=== PATIENT | female | born 1965 | race African-American/Black ===

== ENCOUNTER 2017-06-25 10:11 | Emergency (ER) | payer MEDICAID ==
[~2017-06-25] VITALS: Ht 167.6 cm; Wt 90.7 kg
[2017-06-25] MEDS ORDERED: Methocarbamol 750mg tab ORAL ONE (10:45)
[2017-06-25] MEDS ORDERED: ROBAXIN-750750 MG PO (11:02)
[2017-06-25] MEDS ORDERED: IBUPROFEN600 MG ORAL (11:02)
--- NOTE | 2017-06-25 11:02 | Emergency Room Report ---
History of Present Illness General Chief Complaint: Pain Source: Patient Present Illness HPI 52-year-old female with history of sciatica on the right side, p/w left sided back pain for one month. Pain is localized to left lower buttocks, sharp in nature, radiating down leg to knee. Movement worsens pain. There are no alleviating factors. Patient took pain medications with minimal relief. Patient has experienced this similar pain in the past. Denies trauma. Denies lower extremity weakness/numbness, no bowel/bladder retention or incontinence, saddle anesthesia. Denies fever, chills, abdominal pain, n/v, dysuria/hematuria. No history of IVDA Allergies: Coded Allergies: CODEINE (Verified Allergy, Unknown, 06/25/17) PHENOBARBITAL (Verified Allergy, Unknown, 06/25/17) PHENYTOIN (Verified Allergy, Unknown, 06/25/17) Patient History Past Medical History: see triage record Past Surgical History: none Pertinent Family History: none Reviewed Nursing Documentation: PMH: Agreed, PSxH: Agreed Nursing Documentation-PMH Past Medical History: No Stated History Review of Systems All Other Systems: negative except mentioned in HPI Physical Exam Vital Signs Date Time Temp Pulse Resp B/P (MAP) Pulse Ox O2 Delivery O2 Flow Rate FiO2 06/25/17 10:17 98.1 66 20 125/76 99 Room Air Sp02 EP Interpretation: reviewed, normal General Appearance: alert, GCS 15, mild distress Head: normocephalic, atraumatic Eyes: bilateral eye normal inspection, bilateral eye PERRL, bilateral eye EOMI ENT: normal ENT inspection, normal pharynx, normal voice, moist mucus membranes Neck: normal inspection, full range of motion, supple Respiratory: normal inspection, lungs clear, normal breath sounds, no respiratory distress, no retraction, no wheezing, speaking full sentences, chest symmetrical Cardiovascular #1: normal inspection, regular rate, rhythm, no edema, normal capillary refill Cardiovascular #2: 2+ radial (R), 2+ radial (L) Gastrointestinal: normal inspection, non tender, soft, non-distended, no guarding Musculoskeletal: other - L sided buttocks tendernss and L lower lumbar. no gross bony deformities. FROM. able to stand on both ext Neurologic: normal inspection, alert, oriented x3, responsive, motor strength/ tone normal, sensory intact, normal gait, speech normal Psychiatric: normal inspection, judgement/insight normal, memory normal Skin: normal inspection, normal color, no rash, warm/dry, well hydrated, normal turgor Medical Decision Making Diagnostic Impression: Primary Impression: Back pain ER Course 52-year-old female with left-sided back pain radiating down leg for one month DDX: Likely musculoskeletal back pain vs. muscular strain vs. sciatica Lumbar fracture is unlikely given patients age, no midline tenderness, no history of trauma, and that patient is ambulatory. Therefore, at this time no imaging is indicated Serious diagnoses such as cord compression, epidural abscess is unlikely in this patient given the clinical scenario and abscess of neurological symptoms or findings. Patient appears nontoxic. Plan: Motrin, robaxin ER course: Patient has remained nontoxic appearing and ambulatory in the ED. Pain improved w/ medications Disposition: Patient will be discharged to home with prescription of motrin and robaxin. Patient cautioned of the effects of robaxin including possible impairment of physical or mental abilities. Patient was instructed to refrain from operating machinery or driving. Patient is also cautioned on the GI effects of motrin and to take sparingly. Patient verbalized understanding. Strict precautions discussed with patient on when to emergently return to the ED which includes severe/worsening back pain, leg weakness/numbness, urinary retention/incontinence, fever or chills, which may indicate severe illness. Patient is to follow up with their PMD within 5 days. Patient agrees with plan. Please note that this Emergency Department Report was dictated using [employer] operations engineer technology software, occasionally this can lead to erroneous entry secondary to interpretation by the dictation equipment. Last Vital Signs Date Time Temp Pulse Resp B/P (MAP) Pulse Ox O2 Delivery O2 Flow Rate FiO2 06/25/17 10:17 98.1 66 20 125/76 99 Room Air Condition: Improved Scripts Ibuprofen* (MOTRIN*) 600 Mg Tablet 600 MG ORAL Q8H Y for For Pain, #30 TAB 0 Refills Prov: Charline Hodges M.D. 06/25/17 Methocarbamol* (ROBAXIN-750*) 750 Mg Tablet 750 MG PO QID, #28 TAB 0 Refills Prov: Charline Hodges M.D. 06/25/17 Referrals: NON PHYSICIAN (PCP) Patient Instructions: Back Pain, Adult, Sciatica Charline Hodges M.D. Jun 25, 2017 11:02
[2017-06-25 11:26] VITALS: BP 124/80
== END 2017-06-25 11:26 | disposition home or self-care (01) ==
LOC: EMR 10:35
DX: M54.42 Lumbago with sciatica, left side (principal); Z88.8 Allergy status to other drugs, medicaments and biological substances; Z88.5 Allergy status to narcotic agent
CPT/HCPCS: 99283

== ENCOUNTER 2017-06-30 18:08 | Emergency (ER) | payer MEDICAID ==
[~2017-06-30] VITALS: Ht 167.6 cm; Wt 89.8 kg
[~2017-06-30 18:08] MED LIST: IBUPROFEN600 MG ORAL; ROBAXIN-750750 MG PO
--- NOTE | 2017-06-30 18:59 | Emergency Room Report ---
History of Present Illness General Chief Complaint: Pain Source: Patient, Family Member - Sons x2 Present Illness HPI 50-year-old female presents ER in by ambulance complaining of body aches and cramps over her entire body. Patient states cramps begin in her hands and feet and spread to rest of her body. Patient reports her body cramped up while at home and she fell to her knees. Patients sons were at home and called the ambulance per the patient request. Patient denies pain in knees currently.Patient states she did not hit her head during fall. Patient reports being seen in ER on for similar symptoms and back pain. States she was prescribed ibuprofen and muscle relaxant. Patient reports taking muscle relaxant at 5PM; states she has not filled ibuprofen prescription at this time. Patient denies lightheadedness, dizziness, LOC. Patient denies fever, chest pain, SOB, dysuria, hematuria. Allergies: Coded Allergies: CODEINE (Verified Allergy, Unknown, 06/25/17) PHENOBARBITAL (Verified Allergy, Unknown, 06/25/17) PHENYTOIN (Verified Allergy, Unknown, 06/25/17) Patient History Past Medical History: see triage record Reviewed Nursing Documentation: PMH: Agreed, PSxH: Agreed Nursing Documentation-PMH Past Medical History: No Stated History Review of Systems All Other Systems: negative except mentioned in HPI Physical Exam Vital Signs Date Time Temp Pulse Resp B/P (MAP) Pulse Ox O2 Delivery O2 Flow Rate FiO2 06/30/17 18:28 98.1 99 18 135/103 96 Room Air Sp02 EP Interpretation: reviewed, normal General Appearance: alert, GCS 15, non-toxic, mild distress Head: normocephalic, atraumatic Eyes: bilateral eye normal inspection, bilateral eye PERRL Neck: full range of motion, supple/symm/no masses Respiratory: chest non-tender, lungs clear, normal breath sounds, no respiratory distress, no accessory muscle use, no wheezing, speaking full sentences Cardiovascular #1: regular rate, rhythm Musculoskeletal: back normal, digits/nails normal, decreased range of motion - secondary to pain, Patricia's Sign negative, other - NVI, tender - TTP over bilateral arms, legs, back, abdomen, flank Neurologic: alert, oriented x3, responsive, motor strength/tone normal, sensory intact, speech normal Psychiatric: depressed affect - secondary to diffuse body pain Skin: normal color, no rash, warm/dry, well hydrated Medical Decision Making PA Attestation Dr. Acharya is my supervising Physician whom patient management has been discussed with. Diagnostic Impression: Primary Impression: Myalgia ER Course Pt. presents to the ED c/o body cramps. Ddx considered but are not limited to fracture, sprain, strain, contusion, myalgias. Vital signs: are WNL, pt. is afebrile ORDERS: CBC, labs within normal limits. CMP, labs within normal limits. Results discussed with patient. ED INTERVENTIONS: Tordol provided in ED. Ativan provided in ED. DISCHARGE: -Rx provided for Lidocaine patch for back pain symptoms. At this time pt. is stable for d/c to home. Patient is resting comfortably in bed in no acute distress, non toxic appearing. Patient is hemodynamically stable and states cramps have ceased at this time. Patient states she is comfortable to be discharged home. Patient will be taken to car by wheelchair and will be driven home by son. Patient verbalizes agreement to plan. Will provide printed patient care instructions, and any necessary prescriptions. Patient instructed to follow with primary care provider in 3 - 5 days to discuss further treatment plan. Care plan and follow up instructions have been discussed with the patient prior to discharge. Take medications as directed. Patient questions asked and answered. ER precautions given, patient instructed to return to ER immediately for any new or worsening of symptoms. Labs Test 06/30/17 19:40 06/30/17 20:07 Sodium Level 135 MMOL/L (136-145) Potassium Level 4.3 MMOL/L (3.5-5.1) Chloride Level 99 MMOL/L (98-107) Carbon Dioxide Level 21 MMOL/L (21-32) Anion Gap 15 mmol/L (5-15) Blood Urea Nitrogen 18 mg/dL (7-18) Creatinine 1.1 MG/DL (0.55-1.30) Estimat Glomerular Filtration Rate > 60 mL/min (>60) Glucose Level 111 MG/DL (74-106) Calcium Level 9.6 MG/DL (8.5-10.1) Total Bilirubin 1.0 MG/DL (0.2-1.0) Aspartate Amino Transf (AST/SGOT) 33 U/L (15-37) Alanine Aminotransferase (ALT/SGPT) 22 U/L (12-78) Alkaline Phosphatase 93 U/L (46-116) Total Protein 9.6 G/DL (6.4-8.2) Albumin 4.6 G/DL (3.4-5.0) Globulin 5.0 g/dL Albumin/Globulin Ratio 0.9 (1.0-2.7) White Blood Count 8.3 K/UL (4.8-10.8) Red Blood Count 4.87 M/UL (4.20-5.40) Hemoglobin 14.6 G/DL (12.0-16.0) Hematocrit 43.7 % (37.0-47.0) Mean Corpuscular Volume 90 FL (80-99) Mean Corpuscular Hemoglobin 30.1 PG (27.0-31.0) Mean Corpuscular Hemoglobin Concent 33.5 G/DL (32.0-36.0) Red Cell Distribution Width 13.4 % (11.6-14.8) Platelet Count 228 K/UL (150-450) Mean Platelet Volume 9.8 FL (6.5-10.1) Neutrophils (%) (Auto) 61.6 % (45.0-75.0) Lymphocytes (%) (Auto) 28.2 % (20.0-45.0) Monocytes (%) (Auto) 8.1 % (1.0-10.0) Eosinophils (%) (Auto) 0.6 % (0.0-3.0) Basophils (%) (Auto) 1.5 % (0.0-2.0) Last Vital Signs Date Time Temp Pulse Resp B/P (MAP) Pulse Ox O2 Delivery O2 Flow Rate FiO2 06/30/17 18:28 98.1 99 18 135/103 96 Room Air Status: improved Reevaluation Impression Patient is resting comfortably, in no acute distress. Patient denies cramps. Disposition: HOME, SELF-CARE Condition: Stable Scripts Lidocaine (Lidoderm) 1 Each Adh..patch 1 PATCH TOPIC DAILY, #7 PATCH 0 Refills Patch(es) may remain in place for up to 12 hours in any 24-hour period. Prov: Jones Mcdowell 06/30/17 Patient Instructions: Muscle Pain, Adult, PAIN, Uncertain Cause (Acute) Additional Instructions: Followup with primary care provider in 3 -5 days. Discuss further treatment and referrals. Take medications as directed. Patient questions asked and answered. ER precautions given, patient instructed to return to ER immediately for any new or worsening of symptoms. Jones Mcdowell Jun 30, 2017 18:59
[2017-06-30] MEDS ORDERED: Ketorolac 60mg Inj IM ONE (19:00)
[2017-06-30] MEDS ORDERED: LORazepam 1mg tab ORAL ONE (19:00)
[2017-06-30 19:15] VITALS: BP 135/103
[2017-06-30 20:02] LABS: ANION GAP 15 mmol/L (5-15); BLOOD UREA NITROGEN 18 mg/dL (7-18); CALCIUM 9.6 MG/DL (8.5-10.1); CARBON DIOXIDE 21 MMOL/L (21-32); CHLORIDE 99 MMOL/L (98-107); CREATININE 1.1 MG/DL (0.55-1.30); POTASSIUM 4.3 MMOL/L (3.5-5.1); SODIUM 135 MMOL/L (136-145)
[2017-06-30 20:13] LABS: ALANINE AMINOTRANSFERASE 22 U/L (12-78); ALBUMIN 4.6 G/DL (3.4-5.0); ALBUMIN/GLOBULIN RATIO 0.9 (1.0-2.7); ALKALINE PHOSPHATASE 93 U/L (46-116); ASPARTATE AMINO TRANSFERASE 33 U/L (15-37)
[2017-06-30 20:21] LABS: BASOPHILS % (AUTO) 1.5 % (0.0-2.0); EOSINOPHILS % (AUTO) 0.6 % (0.0-3.0); HEMATOCRIT 43.7 % (37.0-47.0); HEMOGLOBIN 14.6 G/DL (12.0-16.0); LYMPHOCYTES % (AUTO) 28.2 % (20.0-45.0); MEAN CORPUSCULAR VOLUME 90 FL (80-99); MONOCYTES % (AUTO) 8.1 % (1.0-10.0); NEUTROPHILS % (AUTO) 61.6 % (45.0-75.0); PLATELET COUNT 228 K/UL (150-450); RED BLOOD COUNT 4.87 M/UL (4.20-5.40); RED CELL DISTRIBUTION WIDTH 13.4 % (11.6-14.8); WHITE BLOOD COUNT 8.3 K/UL (4.8-10.8)
[2017-06-30] MEDS ORDERED: LIDODERM700 M1 TOPIC (21:14)
[2017-06-30 21:15] VITALS: BP 128/99
[2017-06-30 21:25] VITALS: BP 128/95
== END 2017-06-30 21:25 | disposition home or self-care (01) ==
LOC: EMR 19:05
DX: M79.1 Myalgia (principal); Z88.5 Allergy status to narcotic agent; Z88.8 Allergy status to other drugs, medicaments and biological substances
CPT/HCPCS: 36415; 80053; 85025; 99284